=== PATIENT | female | born 1970 | race Hispanic/Latino ===

== ENCOUNTER 2018-11-12 05:41 | Emergency (ER) | payer BC, OTHER ==
[2018-11-12 06:03] LABS: APPEARANCE,URINE Clear (CLEAR); BILIRUBIN,URINE Negative (NEGATIVE); COLOR,URINE Yellow (YELLOW); GLUCOSE, URINE (UA) Negative (NEGATIVE); KETONES,URINE Negative (NEGATIVE); LEUKOCYTE ESTERASE ,URINE Negative (NEGATIVE); NITRATE,URINE Negative (NEGATIVE); OCCULT BLOOD,URINE Negative (NEGATIVE); PROTEIN,URINE Negative (NEGATIVE)
[2018-11-12 07:01] LABS: BASOPHILS % (AUTO) 0.3 % (0.0-5.0); EOSINOPHILS % (AUTO) 0.9 % (0.0-8.0); HEMATOCRIT 41.8 % (36-48); LYMPHOCYTES % (AUTO) 19.7 % (21.0-51.0); MEAN CORPUSCULAR HEMOGLOBIN 28.1 pg (27.0-33.0); MEAN CORPUSCULAR HGB CONC 32.6 g/dL (32.0-36.0); MEAN CORPUSCULAR VOLUME 86.3 fL (79-99); MONOCYTES % (AUTO) 4.1 % (3.0-13.0); PLATELET COUNT (AUTO) 230 K/uL (130-400); RED BLOOD CELL COUNT(AUTO) 4.84 MIL/uL (4.00-5.50); RED CELL DISTRIBUTION WIDTH 14.2 % (11.0-15.5); WHITE BLOOD COUNT (AUTO) 8.3 K/uL (4.8-10.8)
[2018-11-12 07:11] LABS: CREATININE 0.7 mg/dL (0.5-1.5)
[2018-11-12 07:16] LABS: ALBUMIN 3.8 g/dL (3.5-5.0); BILIRUBIN,TOTAL 0.7 mg/dL (0.2-1.0); TOTAL PROTEIN, SERUM 6.7 g/dL (6.0-8.3)
[2018-11-12 07:21] LABS: INR 0.95 (0.85-1.15); PARTIAL THROMBOPLASTIN TIME 27.5 SEC (26.3-35.5)
[2018-11-12] MEDS ORDERED: IOHEXOL-350 75 ML VIAL IV ONE (07:30)
[2018-11-12] MEDS ORDERED: MORPHINE SULFATE 4 MG/1ML SYG ONE (08:20)
== END 2018-11-12 11:45 | disposition home or self-care (01) ==
LOC: EDH 05:41
DX: N83.299 Other ovarian cyst, unspecified side (principal); K59.00 Constipation, unspecified; Z90.49 Acquired absence of other specified parts of digestive tract; Z98.890 Other specified postprocedural states
CPT/HCPCS: 36415; 74177; 76856; 80053; 81003; 82550; 83605; 83690; 84484; 85025; 85610; 85730; 96374; 99285; J2270; Q9967

== ENCOUNTER → 2019-02-15 | Outpatient (CLI) | payer OTHER | END | disposition home or self-care (01) | LOC: OIH 15:00 | PROVIDERS: ATTEND Internal Medicine Cardiovascular Disease | DX: Z13.6 Encounter for screening for cardiovascular disorders (principal) | CPT/HCPCS: 75571 ==

== ENCOUNTER → 2019-03-05 | Outpatient (CLI) | payer BC | END | disposition home or self-care (01) | LOC: SHCH 10:00 | PROVIDERS: ATTEND Internal Medicine Cardiovascular Disease | DX: R06.00 Dyspnea, unspecified (principal) | CPT/HCPCS: 93306 ==

== ENCOUNTER → 2019-03-15 | Outpatient (CLI) | payer BC | END | disposition home or self-care (01) | LOC: SHCH 14:42 | PROVIDERS: ATTEND Internal Medicine Cardiovascular Disease | DX: I65.23 Occlusion and stenosis of bilateral carotid arteries (principal) | CPT/HCPCS: 93880 ==

== ENCOUNTER → 2020-02-13 | Outpatient (CLI) | payer BC | END | disposition home or self-care (01) | LOC: SHCH 14:18 | PROVIDERS: ATTEND Internal Medicine Cardiovascular Disease | DX: R00.2 Palpitations (principal) | CPT/HCPCS: 93306; 93356 ==

== ENCOUNTER → 2021-12-06 | Outpatient (CLI) | payer BC | END | disposition home or self-care (01) | LOC: SHCH 14:14 | PROVIDERS: ATTEND Internal Medicine Cardiovascular Disease | DX: I08.0 Rheumatic disorders of both mitral and aortic valves (principal); I11.9 Hypertensive heart disease without heart failure; I65.23 Occlusion and stenosis of bilateral carotid arteries | CPT/HCPCS: 93306 ==

== ENCOUNTER 2024-02-05 10:03 | Emergency (ER) | payer OTHER ==
[~2024-02-05] VITALS: Ht 149.9 cm; Wt 73.9 kg
[2024-02-05] MEDS: cloNIDine HCL 0.1 MG TABLET PO ONE (10:20)
[2024-02-05] MEDS: acetaMINOPHEN 500 MG TABLET PO ONE (10:22)
[2024-02-05 10:25] LABS: BASOPHILS # (AUTO) 0.03 K/uL (0.00-0.20); BASOPHILS % (AUTO) 0.3 % (0.0-5.0); EOSINOPHILS # (AUTO) 0.08 K/uL (0.00-0.70); EOSINOPHILS % (AUTO) 0.9 % (0.0-8.0); HEMATOCRIT 47.1 % (36-48); IMMATURE GRANULOCYTE ABSOLUTE 0.03 K/uL (0-1); LYMPHOCYTES # (AUTO) 2.3 K/uL (1.0-4.8); LYMPHOCYTES % (AUTO) 24.5 % (21.0-51.0); MEAN CORPUSCULAR HEMOGLOBIN 28.1 pg (27.0-33.0); MEAN CORPUSCULAR HGB CONC 31.8 g/dL (32.0-36.0); MEAN CORPUSCULAR VOLUME 88.4 fL (79-99); MONOCYTES # (AUTO) 0.4 K/uL (0.1-1.0); NEUTROPHILS # (AUTO) 6.5 K/uL (1.8-7.7); PLATELET COUNT (AUTO) 200 K/uL (130-400); RED BLOOD CELL COUNT(AUTO) 5.33 MIL/uL (4.00-5.50); WHITE BLOOD COUNT (AUTO) 9.3 K/uL (4.8-10.8)
[2024-02-05 10:32] LABS: CREATININE 0.8 mg/dL (0.5-1.0); POTASSIUM 4.6 mmol/L (3.5-5.1)
[2024-02-05 10:42] LABS: MAGNESIUM 2.2 mg/dL (1.80-2.40)
[2024-02-05 11:34] VITALS: BP 123/62; PULSE 68; RESP 14; TEMP 98.1; O2SAT 97
[2024-02-05] MEDS ORDERED: METO-391 PO (11:45)
== END 2024-02-05 11:52 | disposition home or self-care (01) ==
LOC: EDH 10:03
DX: I10 Essential (primary) hypertension (principal); Z20.822 Contact with and (suspected) exposure to COVID-19; Z90.49 Acquired absence of other specified parts of digestive tract; Z90.710 Acquired absence of both cervix and uterus; Z98.890 Other specified postprocedural states
CPT/HCPCS: 36415; 71045; 80048; 83735; 84484; 85025; 87426; 93005